=== PATIENT | male | born 1975 | race Caucasian/White ===

== ENCOUNTER 2022-07-12 18:53 | Emergency (ER) | payer MEDICAID ==
[~2022-07-12] VITALS: Ht 170.2 cm; Wt 104.5 kg
[2022-07-12 19:08] VITALS: BP_DIAS 104
[2022-07-12] MEDS ORDERED: RISP2TAB85 PO (23:40)
[2022-07-12] MEDS ORDERED: HYDR-3686 PO (23:40)
[2022-07-12] MEDS ORDERED: ASPI-1265 PO (23:40)
[2022-07-12] MEDS ORDERED: LISI40TA13 PO (23:40)
[2022-07-12] MEDS ORDERED: METF-436 PO (23:40)
[2022-07-12] MEDS ORDERED: MIRT-116 PO (23:40)
[2022-07-12] MEDS ORDERED: OMEP40CA21 PO (23:40)
[2022-07-12] MEDS ORDERED: METO-411 PO (23:40)
[2022-07-12] MEDS ORDERED: AMLO2.5T2 PO (23:40)
[2022-07-12] MEDS ORDERED: SPIR25TA5 PO (23:40)
[2022-07-13] MEDS ORDERED: pantoprazole 40mg Tablet.DR PO ONE (00:30)
[2022-07-13] MEDS ORDERED: amLODIPine 5mg tablet PO ONE (00:30)
[2022-07-13] MEDS ORDERED: hydrOXYzine 25 MG tablet PO ONE (00:30)
[2022-07-13] MEDS ORDERED: metoprolol succinate 25mg (24-HOUR) SR. Tablet PO ONE (00:30)
[2022-07-13] MEDS ORDERED: risperiDONE 2mg tablet PO ONE (00:30)
[2022-07-13] MEDS ORDERED: lisinopril 10 MG tablet PO ONE (00:30)
[2022-07-13] MEDS ORDERED: METO100T7 PO (00:35)
[2022-07-13] MEDS ORDERED: HYDR-3686 PO (00:35)
[2022-07-13] MEDS ORDERED: MIRT-116 PO (00:35)
[2022-07-13] MEDS ORDERED: LISI20TA28 PO (00:35)
[2022-07-13] MEDS ORDERED: OMEP40CA21 PO (00:35)
[2022-07-13] MEDS ORDERED: RISP2TAB85 PO (00:35)
[2022-07-13] MEDS ORDERED: AMLO5TAB PO (00:35)
[2022-07-13 00:49] VITALS: BP_SYST 186
[2022-07-13] MEDS ORDERED: mirtazapine 15mg tablet PO SCH (21:00)
== END 2022-07-13 00:52 | disposition home or self-care (01) ==
LOC: ER 18:54
DX: F99 Mental disorder, not otherwise specified (principal); Z88.0 Allergy status to penicillin; Z88.5 Allergy status to narcotic agent; Z88.1 Allergy status to other antibiotic agents; Z88.8 Allergy status to other drugs, medicaments and biological substances; Z79.82 Long term (current) use of aspirin; Z79.899 Other long term (current) drug therapy
CPT/HCPCS: 99284; Q0177